=== PATIENT | male | born 1975 ===

== ENCOUNTER 2016-09-16 16:51 | Emergency (ER) | payer OTHER ==
[2016-09-16 17:02] VITALS: RESP 16
[2016-09-16] MEDS ORDERED: SODIUM CHLORIDE 0.9% 1000ML 1,000 ML IV ONE (17:11)
[2016-09-16] MEDS ORDERED: HYDROMORPHONE 1 MG/ML SYRINGE IV ONE (17:11)
[2016-09-16] MEDS ORDERED: HYDROMORPHONE 1 MG/ML SYRINGE ONE (17:20)
[2016-09-16 17:22] LABS: BASOPHILS % (AUTO) 0 % (0-3); EOSINOPHILS % (AUTO) 1 % (0-9); HEMATOCRIT 34 % (39-53); MEAN CORPUSCULAR HGB CONC 31.6 gm/dl (32.0-36.0); MONOCYTES % (AUTO) 6.1 % (0-12); NEUTROPHILS % (AUTO) 91.7 % (37-80)
[2016-09-16 17:27] LABS: MEAN CORPUSCULAR VOLUME 81 fL (80-100)
[2016-09-16 17:40] LABS: ALBUMIN 2.3 gm/dl (3.4-5.0); CALCIUM 8.6 mg/dl (8.5-10.1); POTASSIUM 4.7 mMol/L (3.5-5.1)
[2016-09-16] MEDS ORDERED: PIPERACILLIN/TAZOBACT 3.375 GM 3.375 GM in SODIUM CHLORIDE 0.9% 100 ML 100 ML IV ONE (18:36)
[2016-09-16] MEDS ORDERED: PIPERACILLIN/TAZOBACT 3.375 GM PDS IV ONE (18:37)
[2016-09-16] MEDS ORDERED: LACTATED RINGERS 1,000 ML IV ONE (19:25)
[2016-09-16] MEDS ORDERED: VANCOMYCIN HCL 500 MG PDS 1,000 MG in SODIUM CHLORIDE 0.9% 250 ML 250 ML IV ONE (19:34)
[2016-09-16 20:05] VITALS: O2SAT 99
[2016-09-16 20:18] VITALS: BP 107/53; PULSE 100; TEMP 100.1
== END 2016-09-16 20:22 | disposition left against medical advice (07) ==
LOC: ED 16:51
DX: L02.211 Cutaneous abscess of abdominal wall (principal)
CPT/HCPCS: 99285 ×3; 80053; 83605; 85025; J1170; J2543; Q9967; 74177; 96365; 96366; 96374; 99284; J3370; A6402

== ENCOUNTER 2016-09-17 17:17 | Emergency (ER) | payer OTHER ==
[2016-09-17] MEDS ORDERED: HYDROMORPHONE HCL 2 MG/ML SOL IM ONE (17:43)
[2016-09-17] MEDS ORDERED: HYDROMORPHONE 1 MG/ML SYRINGE ONE (17:55)
[2016-09-17] MEDS ORDERED: SODIUM CHLORIDE 0.9% 50 ML 25 ML IV PRN (18:32)
[2016-09-17] MEDS ORDERED: PIPERACILLIN/TAZOBACT 3.375 GM 3.375 GM in SODIUM CHLORIDE 0.9% 100 ML 100 ML IV SCH (18:45)
[2016-09-17] MEDS ORDERED: SODIUM CHLORIDE 0.9% 1000ML 1,000 ML IV NR (18:45)
[2016-09-17 18:59] LABS: CALCIUM 8.5 mg/dl (8.5-10.1)
[2016-09-17] MEDS ORDERED: PIPERACILLIN/TAZOBACT 3.375 GM PDS IV ONE (18:59)
[2016-09-17 19:01] LABS: BASOPHILS % (AUTO) 0 % (0-3); EOSINOPHILS % (AUTO) 1 % (0-9); HEMATOCRIT 31 % (39-53); MEAN CORPUSCULAR HGB CONC 31.3 gm/dl (32.0-36.0); MONOCYTES % (AUTO) 7.3 % (0-12); NEUTROPHILS % (AUTO) 89.2 % (37-80)
[2016-09-17 19:04] LABS: MEAN CORPUSCULAR VOLUME 80 fL (80-100)
[2016-09-17 19:30] VITALS: RESP 20; TEMP 99.5
[2016-09-17] MEDS ORDERED: KETOROLAC TROMETHAMINE 30 MG/ML SOL IV ONE (19:41)
[2016-09-17] MEDS ORDERED: KETOROLAC TROMETHAMINE 30 MG/ML SOL ONE (19:48)
[2016-09-17 20:02] VITALS: BP 109/63; PULSE 85; O2SAT 99
== END 2016-09-17 20:24 | disposition short-term general hospital (02) ==
LOC: ED 17:17
DX: L02.211 Cutaneous abscess of abdominal wall (principal)
CPT/HCPCS: 99285 ×3; 80048; 83605; 85025; 87040 ×2; J1170; J1885; J2543; 36415